=== PATIENT | female | born 1995 | race African-American/Black ===

== ENCOUNTER 2022-05-26 09:22 | Emergency (ER) | payer OTHER, SELFPAY ==
[2022-05-26 09:29] VITALS: BP 133/66; PULSE 100; RESP 15; TEMP 36.8; O2SAT 100; BMI 32.0
--- NOTE | 2022-05-26 09:31 | DI.US.S_ITS ---
PROCEDURE: US OB LIMITED INDICATIONS: 14 weeks ,bleeding OUTSIDE/PRIOR DATING DATA: Last menstrual period (LMP): Not available. LMP-based estimated date of delivery (NAYLA): Not available. First dating scan (date and location): 05/26/2022 at . Estimated date of delivery (NAYLA) from first dating scan: 13 weeks 0 day. The calculations are made using the ultrasound NAYLA of 11/29/2022. TECHNIQUE: Real-time scanning was performed of the fetus, with image documentation and biometric measurements. Biophysical profile was also obtained. Endovaginal scanning: Not performed. COMPARISON: None. FINDINGS: General: A single living intrauterine gestation is present. The estimated gestational age is 13 weeks 2 day. heart tone is present with heart rate 163 beats per minute. Placenta is posterior. Maternal cervical canal measures 4.7 cm long. biometrics: Biparietal diameter: 13 weeks 0 day Head circumference: 13 weeks 2 days Abdominal circumference: 13 weeks 4 days Femur length: 13 weeks 2 days Clinically estimated gestational age: Not available Composite gestational age from present scan: 30 weeks 2 days Other: There are multiple uterine fibroids. The largest fibroid measures 6.7 x 6.3 x 5.1 cm in the posterior uterine wall near the fundus. IMPRESSION: 1. A single living intrauterine gestation with an estimated gestational age of 13 weeks 2 days corresponding to ultrasound NAYLA 11/29/2022. 2. Cervix is normal in length and is closed. 3. Multiple uterine fibroids. The largest fibroid measures 6.7 x 6.3 x 5.1 cm We strive to produce accurate, complete, and clear reports of imaging services. To assist us in improving patient care, this report was composed using standard report templates and voice recognition software. Therefore, it may contain abnormal punctuation, insertions and/or omissions. Occasional wrong-word or sound-alike substitutions may occur. Though we review the report and make efforts to correct it, we do recommend that the report be read carefully in proper context to recognize any text inaccuracies. Dictated by: Mati Jansen M.D. on 05/26/2022 at 10:15 Approved by: Mati Jansen M.D. on 05/26/2022 at 10:24
--- NOTE | 2022-05-26 09:47 | ED_ITS ---
HPI - General Chief complaint: Vaginal Bleeding Stated complaint: 14wks , vaginal bleeding Time Seen by Provider: 05/26/22 09:39 Source: patient Mode of arrival: Ambulatory Limitations: no limitations History of Present Illness HPI Narrative: Patient is a 26-year-old healthy female who presents today optimally 14 weeks . She is a presents today with vaginal bleeding. She is not yet had any care. She is trying but everyone is backed up. She did have a confirmation ultrasound somewhere. This morning she woke up and had a small blood clot. She has no abdominal cramping no dizziness no nausea or vomiting. Unplanned but welcomed . She has not had previous blood work does not know her blood type. She thinks she is approximately 14 weeks . Related Data Previous Rx's Medication Instructions Recorded cephalexin 500 mg capsule 500 mg PO BID 5 days #10 caps 05/26/22 Allergies Allergy/AdvReac Type Severity Reaction Status Date / Time No Known Drug Allergies Allergy Verified 05/26/22 09:29 Review of Systems Review of Systems ROS Unobtainable: All systems reviewed & are unremarkable except as noted in HPI and below Exam Initial Vital Signs Initial Vital Signs: Vital Signs Temperature 98.3 F 05/26/22 09:29 Pulse Rate 100 H 05/26/22 09:29 Respiratory Rate 15 05/26/22 09:29 Blood Pressure 133/66 05/26/22 09:29 Pulse Oximetry 100 05/26/22 09:29 Oxygen Delivery Method 05/26/22 09:29 GENERAL: Alert pleasant 6-year-old female HEENT: Head atraumatic,EOMI, pupils reactive, face symmetric, moist mucous membranes CARDIOVASCULAR: Regular rate and rhythm without murmurs, rubs or gallops. RESPIRATORY: Breath sounds equal bilaterally, no wheezes rales or rhonchi. ABDOMEN: Soft, nontender. Normoactive bowel sounds all 4 quadrants. No guarding or rebound. : No CVA tenderness EXTREMITIES: Normal range of motion, no clubbing or edema. Neurovascularly intact NEUROLOGICAL: Alert and oriented x4. SKIN: Warm, dry, no laceration, no petechiae, no rashes or lesions. Course Orders Ordered: ED Orders 05/26/22 09:31 US OB limited Stat 05/26/22 09:35 Urine Culture Stat Urine Microscopic Stat 05/26/22 09:51 Complete Blood Count AUTO DIFF Stat Comprehensive Metabolic Panel Stat HCG Quantitative /Beta subunit Stat 05/26/22 10:16 ABO RH Type Stat Vital Signs Vital signs: Vital Signs - 8 hr 05/26/22 09:29 05/26/22 11:52 Temperature 98.3 F Pulse Rate 100 H 74 Respiratory Rate 15 16 Blood Pressure 133/66 122/79 Pulse Oximetry 100 98 Oxygen Delivery Method Room Air Room Air MDM - OB/Uterine Contractions Lab Data Result diagrams: 05/26/22 09:51 05/26/22 09:51 Labs: Lab Results 05/26/22 05/26/22 05/26/22 Range/Units 09:35 09:51 09:51 WBC 5.6 (4.5-11.0) X10^3/uL RBC 4.25 (4.0-5.2) X10^6/uL Hgb 12.0 (12.0-16.0) g/dL Hct 36.6 (36-46) % MCV 86.2 (80-100) fL MCH 28.3 (26-34) PG MCHC 32.9 (30-36) % RDW 14.6 (11.6-14.8) % Plt Count 252 (150-400) X10^3/uL Neut % (Auto) 55.0 (50-75) % Lymph % (Auto) 35.0 (25-40) % [place] % (Auto) 8.5 (3-14) % Eos % (Auto) 1.0 L (2-4) % Baso % (Auto) 0.5 (0-2) % Neut # (Auto) 3100 (3698-0666) /uL Lymph # (Auto) 2000 (6882-8389) /uL [place]illespie # (Auto) 500 (0-900) /uL Eos # (Auto) 100 (0-450) /uL Baso # (Auto) 0 (0-100) /uL Sodium 134 L (137-145) mmol/L Potassium 3.6 (3.4-5.1) mmol/L Chloride 103 (98-107) mmol/L Carbon Dioxide 20 L (22-32) mmol/L BUN 5 L (7-17) mg/dL Creatinine 0.66 (0.52-1.04) mg/dL Estimated GFR > 60 (>60) mL/min BUN/Creatinine Ratio 7.6 (6-22) Glucose 92 (70-100) mg/dL Calcium 9.3 (8.4-10.2) mg/dL Total Bilirubin 0.3 (0.2-1.3) mg/dL AST 24 (14-36) IU/L ALT 21 (<35) IU/L Alkaline Phosphatase 59 (38-126) U/L Total Protein 7.8 (6.3-8.2) g/dL HCG, Quant 477169 mIU/mL Urine RBC 10-30/hpf H (0-5/HPF) Urine WBC 1-5/hpf (0-5/HPF) Ur Squamous Epith Cells 1-5 /hpf (0-5/HPF) Urine Bacteria Few (2-10) H (None) Urine Mucus 3+ H (Negative) Ur Culture Indicated? Specimen cultured Blood Type Rho(D) Type Antibody Screen 05/26/22 05/26/22 Range/Units 09:51 10:16 WBC (4.5-11.0) X10^3/uL RBC (4.0-5.2) X10^6/uL Hgb (12.0-16.0) g/dL Hct (36-46) % MCV (80-100) fL MCH (26-34) PG MCHC (30-36) % RDW (11.6-14.8) % Plt Count (150-400) X10^3/uL Neut % (Auto) (50-75) % Lymph % (Auto) (25-40) % Gillespie % (Auto) (3-14) % Eos % (Auto) (2-4) % Baso % (Auto) (0-2) % Neut # (Auto) (4862-2679) /uL Lymph # (Auto) (6411-9253) /uL Gillespie # (Auto) (0-900) /uL Eos # (Auto) (0-450) /uL Baso # (Auto) (0-100) /uL Sodium (137-145) mmol/L Potassium (3.4-5.1) mmol/L Chloride (98-107) mmol/L Carbon Dioxide (22-32) mmol/L BUN (7-17) mg/dL Creatinine (0.52-1.04) mg/dL Estimated GFR (>60) mL/min BUN/Creatinine Ratio (6-22) Glucose (70-100) mg/dL Calcium (8.4-10.2) mg/dL Total Bilirubin (0.2-1.3) mg/dL AST (14-36) IU/L ALT (<35) IU/L Alkaline Phosphatase (38-126) U/L Total Protein (6.3-8.2) g/dL HCG, Quant mIU/mL Urine RBC (0-5/HPF) Urine WBC (0-5/HPF) Ur Squamous Epith Cells (0-5/HPF) Urine Bacteria (None) Urine Mucus (Negative) Ur Culture Indicated? Blood Type Cancelled O Positive Rho(D) Type Cancelled Antibody Screen Cancelled Point of Care Testing Test Results Positive Urine Dip Bedside Urine Glucose Negative Bedside Urine Bilirubin - Negative Bedside Urine Ketone - Negative Urine Specific [place] 1.030 Bedside Urine Occult Blood +++ Bedside Urine pH 6.0 Bedside Urine Protein + 30 Bedside Urine Urobilinogen - Negative Bedside Urine Nitrite - Negative Bedside Urine Leukocytes - Negative Esterase Imaging Data US - OB: Radiologist's Impression: Single living intrauterine gestation with an estimated gestational age of 13 weeks and 2 days corresponding with NAYLA 11/29/2022 Cervix is normal in length and is close Multiple uterine fibroids the largest fibroid measures 6.7 x 6.3 x 5.1 cm MDM Narrative Medical decision making narrative: Patient is a healthy 26-year-old female who presents with vaginal bleeding while . She is no abdominal cramping. Ultrasound confirms a live intrauterine without complications but does show fibroids. She only had a small amount of bleeding. She is found to have a UTI. No septic no sign of placenta previa or subchorionic hemorrhage. MDM * differential diagnosis includes but not limited to: Miscarriage, threatened miscarriage incomplete miscarriage, placenta previa subchorionic hemorrhage * Prior records reviewed: None * My lab interpretation: Within normal limits, UTI * My imaging interpretation: Ultrasound report reviewed, fibroids * Clinical Decision Rules/Scores evaluated: None * Independent discussions with: None * Social Considerations: Has not established care with Ob * Shared Decision Making: and patient *Disposition: see below, along with detailed discharge instructions that have been reviewed with patient as well as indications for ED re-evaluation and additional outpatient follow up Discharge Plan Departure Patient Disposition: Home Clinical Impression: UTI (urinary tract infection), Vaginal bleeding during Instructions: DI for Urinary Tract Infection (UTI), DI for Vaginal Bleeding During Activity Restrictions/Additional Instructions: You are blood type O+ *You have been diagnosed with vaginal bleeding, UTI *What to do: Vaginal bleeding. At this time you do have uterine fibroids. Recommend pelvic and vaginal rest no intercourse or tampons. Monitor bleeding. You do have a bladder infection and antibiotics will be started *Continue to take medications as directed Keflex 500 mg twice a day for 5 days --> [facility] *Follow up with your primary care provider in 2-3 days or call [phone] *Return to ER if you should have increased vaginal bleeding abdominal cramping dizziness lightheadedness or any new, worsening or concerning symptoms Prescriptions: New cephalexin 500 mg capsule 500 mg PO BID 5 Days Qty: 10 0RF Referrals: Tere Poe MD [Physician] - Kylie Lopez MD [Physician] - Zayra Carmichael MD [Physician] - Ramón Ji MD [Physician] - Stand Alone Forms: Patient Portal/API
[2022-05-26 10:02] LABS: Add Manual Diff / Slide Review NO; Basophils Absolute Auto 0 /uL (0-100); Basophils Percent Auto 0.5 % (0-2); Eosinophils Absolute Auto 100 /uL (0-450); Hematocrit 36.6 % (36-46); Lymphocytes Absolute Auto 2000 /uL (1100-4500); Mean Corpuscular HGB Conc 32.9 % (30-36); Mean Corpuscular Hemoglobin 28.3 PG (26-34); Mean Corpuscular Volume 86.2 fL (80-100); Monocytes Absolute Auto 500 /uL (0-900); Monocytes Percent Auto 8.5 % (3-14); Neutrophils Absolute Auto 3100 /uL (1500-7000); Platelet Count 252 X10^3/uL (150-400); Red Blood Cell Count 4.25 X10^6/uL (4.0-5.2); Red Cell Distribution Width 14.6 % (11.6-14.8); White Blood Cell Count 5.6 X10^3/uL (4.5-11.0)
[2022-05-26 10:10] LABS: Bacteria Urine Few (2-10); Culture Indicated Urine Specimen Cultured; Mucus Urine 3+ (Negative); RBC Urine 10-30/HPF (0-5/HPF); Squamous Epithelial Cell Urine 1-5 /HPF (0-5/HPF); WBC Urine 1-5/HPF (0-5/HPF)
[2022-05-26 10:13] LABS: Alanine Aminotransferase 21 IU/L (<35); Alkaline Phosphatase 59 U/L (38-126); Aspartate Aminotransferase 24 IU/L (14-36); BUN Creatinine Ratio 7.6 (6-22); Bilirubin Total 0.3 mg/dL (0.2-1.3); Blood Urea Nitrogen 5 mg/dL (7-17); Calcium 9.3 mg/dL (8.4-10.2); Carbon Dioxide 20 mmol/L (22-32); Chloride 103 mmol/L (98-107); Estimated Glomerular Filt Rate > 60 mL/min (>60); Glucose 92 mg/dL (70-100); HEMOLYSIS < 15 (0-50); Potassium 3.6 mmol/L (3.4-5.1); Sodium 134 mmol/L (137-145); Total Protein 7.8 g/dL (6.3-8.2)
[2022-05-26 11:00] LABS: HCG Quantitative /Beta subunit 103300 mIU/mL
[2022-05-26 11:52] VITALS: BP 122/79; PULSE 74; RESP 16; O2SAT 98
[2022-05-28 16:28] LABS: Albumin 4.1 g/dL (3.5-5.0); Albumin Globulin Ratio 1.1 (1.0-2.8); Globulin 3.7 g/dL (1.7-4.1)
== END 2022-05-26 11:54 | disposition home or self-care (01) ==
PROVIDERS: Emergency Provider Emergency Medicine
DX: O46.91 Antepartum hemorrhage, unspecified, first trimester (principal); O23.41 Unspecified infection of urinary tract in pregnancy, first trimester; N39.0 Urinary tract infection, site not specified; Z3A.14 14 weeks gestation of pregnancy
CPT/HCPCS: 36415; 76815; 80053; 81003; 81015; 81025; 84702; 85025; 86900; 86901; 87086; 99284

== ENCOUNTER 2022-06-03 23:28 | Emergency (ER) | payer OTHER, SELFPAY ==
[2022-06-03 23:32] VITALS: BP 128/70; PULSE 89; RESP 16; TEMP 36.6; O2SAT 100; BMI 30.1
--- NOTE | 2022-06-03 23:46 | ED.GENADULT ---
HPI - General Adult General Chief complaint: Vaginal Bleeding Stated complaint: vaginal bleeding 14weeks preganant Time Seen by Provider: 06/03/22 23:30 Source: patient and family () Mode of arrival: Ambulatory Limitations: no limitations History of Present Illness HPI narrative: Patient is a 26-year-old at approximately 14 weeks EGA who is here for evaluation of vaginal bleeding. She was seen here in the emergency department approximately 1 week ago for vaginal bleeding. She had an ultrasound which showed a single intrauterine gestation. Discharged home. She is Rh positive. States that episode of bleeding has stopped and this bleeding started over the past couple days. She states that it is as much as a menstrual cycle. No urinary symptoms. No fevers. No recent sexual intercourse. Related Data Allergies Allergy/AdvReac Type Severity Reaction Status Date / Time No Known Drug Allergies Allergy Verified 06/03/22 23:40 Review of Systems Constitutional Constitutional: Reports system reviewed and no additional complaints, except as documented Gastrointestinal Gastrointestinal: Reports system reviewed and no additional complaints, except as documented Genitourinary Genitourinary: Reports system reviewed and no additional complaints, except as documented Integumentary/Breasts Skin/Breast: Reports system reviewed and no additional complaints, except as documented Hematologic/Lymphatic On Anticoagulants: No Patient History Social History Smoking Status: Unknown if ever smoked Smoking Status: Unknown if ever smoked alcohol intake frequency: holidays/special occasions only Substance Use Type: does not use Exam Initial Vital Signs Initial Vital Signs: Vital Signs Temperature 97.8 F 06/03/22 23:32 Pulse Rate 89 06/03/22 23:32 Respiratory Rate 16 06/03/22 23:32 Blood Pressure 128/70 06/03/22 23:32 Pulse Oximetry 100 06/03/22 23:32 Oxygen Delivery Method 06/03/22 23:32 HENMT Head: normal to inspection and normocephalic Resp Effort & Inspection: normal respiratory effort Cardio Rate: regular rate GI Inspection: non-distended Course Orders Ordered: ED Orders 06/03/22 23:47 US OB limited Stat Vital Signs Vital signs: Vital Signs - 8 hr 06/03/22 23:32 Temperature 97.8 F Pulse Rate 89 Respiratory Rate 16 Blood Pressure 128/70 Pulse Oximetry 100 Oxygen Delivery Method Room Air Medical Decision Making Differential Diagnosis Differential Diagnosis: Miscarriage, ectopic, abnormal vaginal bleeding, and others Condition is:: Well Controlled Medical Records Medical records reviewed: Yes I reviewed the patient's medical records. Lab Data Lab results reviewed: Yes I reviewed the patient's lab results. Imaging Data US - OB: Radiologist's Impression: [address] [address] Ultrasound Report Signed Patient: Mayelin Dillon MR#: [id number] : 1995 Acct:[id number] Age/Sex: 26 / F Date of Service: 06/03/22 Loc: ED Accession Number: [id number] ?? Procedure: US OB limited Ordering Provider: Harpreet Sloan D.O. PROCEDURE:? US OB LIMITED ? INDICATIONS:? BLEEDING ? OUTSIDE/PRIOR DATING DATA:? Last menstrual period (LMP):? Unsure.? First dating scan (date and location):? 05/26/2022.? Estimated date of delivery (NAYLA) from first dating scan:? 11/29/2022. The calculations are made using the ultrasound NAYLA of 11/29/2022.? ? TECHNIQUE:? Real-time scanning was performed of the fetus, with image documentation and biometric measurements.? Biophysical profile was also obtained.? ? COMPARISON:? [facility], , US OB LIMITED, 05/26/2022, 9:52. ? FINDINGS:? ? General:? A single living intrauterine gestation is present.? Placenta:? Placental position appears located in the posterior fundal region.? No definite periplacental fluid collections. Amniotic fluid:? Appears visually within normal limits. heart rate:? 147 beats per minute.? Maternal cervical canal:? Not measured. Clinically estimated gestational age:? 14 weeks 4 days Multiple uterine fibroids redemonstrated including a left fibroid measuring approximately 7.6 x 5.1 x 6.1 cm and a right fibroid measuring 4.6 x 4.1 x 4 9 cm. ? ? IMPRESSION:? ? 1. Single living intrauterine redemonstrated.? ? 2. No periplacental fluid collections to suggest placental abruption. ? 3. Multiple prominent uterine fibroids redemonstrated.? ? We strive to produce accurate, complete, and clear reports of imaging services. To assist us in improving patient care, this report was composed using standard report templates and voice recognition software. Therefore, it may contain abnormal punctuation, insertions and/or omissions. Occasional wrong-word or sound-alike substitutions may occur. Though we review the report and make efforts to correct it, we do recommend that the report be read carefully in proper context to recognize any text inaccuracies. ? Dictated by: Colton Gaxiola M.D. on 06/04/2022 at 1:44 ? ? Approved by: Colton Gaxiola M.D. on 06/04/2022 at 1:49 MDM Narrative Medical decision making narrative: Patient is Rh positive. Ultrasound today shows single live intrauterine . She is a follow-up appointment on Tuesday with OB. No further workup required in the emergency department. Discharge patient home with return precautions. She expressed understanding and agreement. Discharge Plan Departure Patient Disposition: Home Clinical Impression: Vaginal bleeding during Instructions: DI for Vaginal Bleeding During Activity Restrictions/Additional Instructions: The ultrasound today is very reassuring. I recommend that you keep your appointment that you have scheduled on Tuesday with the OB provider. Return to the emergency department for worsening symptoms. Referrals: ProviderHeather [Primary Care Provider] - Stand Alone Forms: Patient Portal/API
--- NOTE | 2022-06-03 23:47 | DI.US.S_ITS ---
PROCEDURE: US OB LIMITED INDICATIONS: BLEEDING OUTSIDE/PRIOR DATING DATA: Last menstrual period (LMP): Unsure. First dating scan (date and location): 05/26/2022. Estimated date of delivery (NAYLA) from first dating scan: 11/29/2022. The calculations are made using the ultrasound NAYLA of 11/29/2022. TECHNIQUE: Real-time scanning was performed of the fetus, with image documentation and biometric measurements. Biophysical profile was also obtained. COMPARISON: [facility], , OB LIMITED, 05/26/2022, 9:52. FINDINGS: General: A single living intrauterine gestation is present. Placenta: Placental position appears located in the posterior fundal region. No definite periplacental fluid collections. Amniotic fluid: Appears visually within normal limits. heart rate: 147 beats per minute. Maternal cervical canal: Not measured. Clinically estimated gestational age: 14 weeks 4 days Multiple uterine fibroids redemonstrated including a left fibroid measuring approximately 7.6 x 5.1 x 6.1 cm and a right fibroid measuring 4.6 x 4.1 x 4 9 cm. IMPRESSION: 1. Single living intrauterine redemonstrated. 2. No periplacental fluid collections to suggest placental abruption. 3. Multiple prominent uterine fibroids redemonstrated. We strive to produce accurate, complete, and clear reports of imaging services. To assist us in improving patient care, this report was composed using standard report templates and voice recognition software. Therefore, it may contain abnormal punctuation, insertions and/or omissions. Occasional wrong-word or sound-alike substitutions may occur. Though we review the report and make efforts to correct it, we do recommend that the report be read carefully in proper context to recognize any text inaccuracies. Dictated by: Colton Gaxiola M.D. on 06/04/2022 at 1:44 Approved by: Colton Gaxiola M.D. on 06/04/2022 at 1:49
[2022-06-04 02:03] VITALS: BP 120/77; PULSE 74
[2022-06-04 02:05] VITALS: BP 120/77; PULSE 75; RESP 18; O2SAT 100
== END 2022-06-04 02:06 | disposition home or self-care (01) ==
PROVIDERS: Emergency Provider Emergency Medicine
DX: O46.91 Antepartum hemorrhage, unspecified, first trimester (principal); Z3A.14 14 weeks gestation of pregnancy
CPT/HCPCS: 76815; 99281; 99283

== ENCOUNTER 2022-06-23 01:56 | Emergency (ER) | payer OTHER, SELFPAY ==
[2022-06-23 02:06] VITALS: BP 136/83; PULSE 88; RESP 20; TEMP 36.1; O2SAT 97; BMI 32.0
[2022-06-23 02:08] VITALS: PULSE 90; O2SAT 98
--- NOTE | 2022-06-23 02:19 | DI.US.S_ITS ---
PROCEDURE: US OB LIMITED INDICATIONS: SPOTTING OUTSIDE/PRIOR DATING DATA: Last menstrual period (LMP): Unsure LMP-based estimated date of delivery (NAYLA): Unknown First dating scan (date and location): 05/26/2022 Estimated date of delivery (NAYLA) from first dating scan: 11/29/2022 The calculations are made using the working NAYLA of 11/29/2022. TECHNIQUE: Real-time scanning was performed of the fetus, with image documentation . Endovaginal scanning: Not indicated COMPARISON: [facility], US OB LIMITED, 06/04/2022, 0:39. FINDINGS: General: A single living intrauterine gestation is present. Presentation: Breech Placenta: Placental position is posterior, without previa. Amniotic fluid index: 14.7 cm, normal range is 5-24 cm. Single deepest vertical pocket is 5.2 cm. heart rate: 157 beats per minute. Maternal cervical canal: 4.3 cm long. Normal lower limit is 2.5 cm. IMPRESSION: 1. Single live intrauterine gestation with fetus in breech presentation. heart rate is 157 beats per minute. Normal amount of amniotic fluid. 2. Placenta position is posterior, no placenta previa. No signs of abruption. No discrepancies from preliminary reading. We strive to produce accurate, complete, and clear reports of imaging services. To assist us in improving patient care, this report was composed using standard report templates and voice recognition software. Therefore, it may contain abnormal punctuation, insertions and/or omissions. Occasional wrong-word or sound-alike substitutions may occur. Though we review the report and make efforts to correct it, we do recommend that the report be read carefully in proper context to recognize any text inaccuracies. Dictated by: Eliecer Hampton M.D. on 06/23/2022 at 8:14 Approved by: Eliecer Hampton M.D. on 06/23/2022 at 8:16
[2022-06-23 02:30] VITALS: BP 124/82; PULSE 97; O2SAT 98
[2022-06-23 03:00] VITALS: BP 100/60; PULSE 76; O2SAT 97
--- NOTE | 2022-06-23 03:12 | ED_ITS ---
HPI - General Adult General Chief complaint: Abdominal Pain Stated complaint: 16 WEEKS PAIN Time Seen by Provider: 06/23/22 02:18 Source: patient Mode of arrival: Ambulatory Limitations: no limitations History of Present Illness HPI narrative: Patient is a 26-year-old female. She is a G2 P 0 at approximately 16 weeks EGA. She has been followed by Ob thus far in this . She is Rh positive. For the past couple days she has had lower abdominal pain and vaginal bleeding. She states it is bleeding his much as we would be like during her 1st couple days of a menstrual cycle. No fevers. No urinary symptoms. States she is constipated and is taking medications for this. She is also having nausea. She talked with her OB doctor earlier this week who advised that she ?seek help? if her symptoms worsened. Related Data Allergies Allergy/AdvReac Type Severity Reaction Status Date / Time No Known Drug Allergies Allergy Verified 06/03/22 23:40 Review of Systems Constitutional Constitutional: Reports system reviewed and no additional complaints, except as documented Gastrointestinal Gastrointestinal: Reports system reviewed and no additional complaints, except as documented Genitourinary Genitourinary: Reports system reviewed and no additional complaints, except as documented Neurologic Neurologic: Reports system reviewed and no additional complaints, except as documented Patient History Social History Smoking Status: Unknown if ever smoked Smoking Status: Unknown if ever smoked alcohol intake frequency: holidays/special occasions only Substance Use Type: does not use Exam Initial Vital Signs Initial Vital Signs: Vital Signs Temperature 96.9 F L 06/23/22 02:06 Pulse Rate 88 06/23/22 02:06 Respiratory Rate 20 06/23/22 02:06 Blood Pressure 136/83 06/23/22 02:06 Pulse Oximetry 97 06/23/22 02:06 Oxygen Delivery Method 06/23/22 02:06 HENMT Head: normal to inspection and normocephalic Resp Effort & Inspection: normal respiratory effort Cardio Rate: regular rate GI Other: Gravid abdomen Skin General: no rashes or lesions noted Neuro General: patient alert, patient awake and moves all extremities Extrem General: normal to inspection and capillary refill normal Course Orders Ordered: ED Orders 06/23/22 02:19 US OB limited Stat Vital Signs Vital signs: Vital Signs - 8 hr 06/23/22 02:06 06/23/22 02:08 06/23/22 02:30 Temperature 96.9 F L Pulse Rate 88 90 Respiratory Rate 20 Blood Pressure 136/83 124/82 Pulse Oximetry 97 98 Oxygen Delivery Method Room Air 06/23/22 02:30 06/23/22 03:00 06/23/22 03:00 Temperature Pulse Rate 97 H 76 Respiratory Rate Blood Pressure 100/60 Pulse Oximetry 98 97 Oxygen Delivery Method 06/23/22 03:30 06/23/22 03:30 Temperature Pulse Rate 77 Respiratory Rate Blood Pressure 95/61 Pulse Oximetry 98 Oxygen Delivery Method Medical Decision Making Imaging Data US - OB: Radiologist's Impression: Single live intrauterine gestation with a heart rate of 157 beats per minute MDM Narrative Medical decision making narrative: Patient does have a benign exam. She is Rh positive. She is a single live intrauterine gestation on ultrasound. I have low suspicion for urinary tract infection. Feel we can hold on further radiologic studies for now based on her physical exam. She was advised she needs to contact her who be/frame stripper and crusher doctor tomorrow to see if they would like to see her sooner in the office than 2 weeks from now. She was given return precautions. She expressed understanding and agreement. Discharge Plan Departure Patient Disposition: Home Clinical Impression: Vaginal bleeding in Instructions: DI for Vaginal Bleeding During Activity Restrictions/Additional Instructions: I recommend that you contact your primary senior grant writer to see if they want to see you sooner than 2 weeks from now. Everything looked well today on the ultrasound. Return to the emergency department for worsening symptoms. Stand Alone Forms: Patient Portal/API
[2022-06-23 03:30] VITALS: BP 95/61; PULSE 77; O2SAT 98
== END 2022-06-23 03:43 | disposition home or self-care (01) ==
PROVIDERS: Emergency Provider Emergency Medicine
DX: O46.92 Antepartum hemorrhage, unspecified, second trimester (principal); Z3A.16 16 weeks gestation of pregnancy
CPT/HCPCS: 76815; 99281; 99283

== ENCOUNTER 2022-07-19 17:37 | Inpatient (IN) | payer OTHER, SELFPAY ==
--- NOTE | 2022-07-19 18:12 | PM.OBTRLD ---
Visit Information Visit Information Date of evaluation: 07/19/22 On-call OB Provider: Kylie Lopez Reason for Evaluation: Yes pre-term labor Vital Signs Vital Signs: BP 124/72, P 77, T 98.9 PFSH Social History Smoking Status: Unknown if ever smoked Comment: Patient with known uterine fibroids Review of Systems Review of Systems Narrative: Patient has been having cramping since last evening. It has gotten worse today. She did have some bright red bleeding that filled a pad last night but no bleeding today. No fevers. Patient does complain of a headache. She did start having some diarrhea today. Patient denies any pain or burning with urination. Exam Narrative Exam Narrative: Patient's HEENT is within normal limits. Lungs are clear to auscultation and percussion. Heart is regular rate and rhythm no S3-S4 murmurs. No thyromegaly. Abdomen is soft with diffuse tenderness. Uterus is firm and with tenderness similar to her abdomen. Normal external genitalia, vagina, cervix. Speculum exam does not reveal any abnormalities of the cervix or any bleeding. Cervix appears normal. On digital exam the cervix is closed and long, however does feel there is some thinning of the lower uterine segment. Ultrasound was performed. Normal fluid. Baby is active. Transverse lie. Fibroids are seen in the uterine wall. No obvious retroplacental fluid collection for bleeding. Evaluation Evaluation Baseline heart rate: 150 Cervical dilation (cm): 0 Cervical effacement (%): 0 station: -4 Diagnosis, Plan/Disposition Plan/Disposition Plan: No evidence of imminent delivery. Will IV hydrate the patient. Due to the fact the patient has known fibroids it is possible she has pain in irritation from a degenerating fibroid. Will try 1 dose indomethacin. OB Disposition: other (Monitor for improvement of symptoms prior to decision for discharge)
[2022-07-19] MEDS: LACTATED RINGERS 1,000 ML 1000 ML IV ×2 (18:42→20:00)
[2022-07-19] MEDS: INDOMETHACIN 25 MG CAPSULE 50 MG PO (18:43)
[2022-07-19 19:04] LABS: Add Manual Diff / Slide Review NO; Basophils Absolute Auto 0 /uL (0-100); Basophils Percent Auto 0.3 % (0-2); Eosinophils Absolute Auto 0 /uL (0-450); Eosinophils Percent Auto 0.2 % (2-4); Hematocrit 33.3 % (36-46); Hemoglobin 11.1 g/dL (12.0-16.0); Lymphocytes Absolute Auto 1000 /uL (1100-4500); Lymphocytes Percent Auto 11.6 % (25-40); Mean Corpuscular HGB Conc 33.5 % (30-36); Mean Corpuscular Volume 86.7 fL (80-100); Monocytes Absolute Auto 400 /uL (0-900); Monocytes Percent Auto 4.5 % (3-14); Neutrophils Absolute Auto 7400 /uL (1500-7000); Neutrophils Percent Auto 83.4 % (50-75); Platelet Count 264 X10^3/uL (150-400); Red Blood Cell Count 3.84 X10^6/uL (4.0-5.2); White Blood Cell Count 8.8 X10^3/uL (4.5-11.0)
[2022-07-19] MEDS: OXYCODONE IR 5 MG TABLET 10 MG PO (19:52)
[2022-07-19 20:14] LABS: Appearance Urine UA CLEAR; Bilirubin Urine UA NEGATIVE (NEGATIVE); Color Urine UA YELLOW; Glucose Urine UA NEGATIVE (Negative); Ketones Urine UA 3+ (NEGATIVE); Leukocyte Esterase Urine UA NEGATIVE (NEGATIVE); Nitrite Urine UA NEGATIVE (Negative); Occult Blood Urine UA NEGATIVE (Negative); Protein Urine UA NEGATIVE (Negative); Specific Gravity Urine UA 1.015 (1.000-1.035); Urobilinogen Urine UA 0.2 E.U./dL (0.2)
[2022-07-19 20:52] LABS: UR Morphine/Opiate cutoff 300 Negative (Negative); Ur Creatinine Normal (Normal); Ur Specific Gravity Normal (Normal); Urine Amphetamines Negative (Negative); Urine Barbiturates Negative (Negative); Urine Benzodiazepines Negative (Negative); Urine Cocaine Negative (Negative); Urine MDMA Negative (Negative); Urine Methadone Negative (Negative); Urine Methamphetamines Negative (Negative); Urine Oxycodone Negative (Negative); Urine Phencyclidine Negative (Negative); Urine Tetrahydrocannabinol Negative (Negative); Urine Tricyclic Antidepressant Negative (Negative); Urine pH Normal (Normal)
[2022-07-19] MEDS: MORPHINE 2 MG/ML INJ IV (21:23)
[2022-07-19] MEDS: MORPHINE 2 MG/ML INJ 4 MG IV (22:32)
--- NOTE | 2022-07-19 23:16 | PM.PROC.1 ---
Procedures Date/Time Date of procedure: 07/19/22 Time of procedure: 23:16 General Procedure description: Delivery vaginally of non viable fetus. The patient arrived on Labor and delivery at 20 week gestation with abdominal pain. Initial evaluation patient had a closed long cervix. Patient was treated pain medicine and indomethacin in case we could stop labor or she was having pain from a degenerating uterine fibroid. Her pain increased in intensity and she had a bulging bag of water that presented and ruptured. The fetus was in the vaginal canal in the vertex position. The patient was able to push to deliver the fetus. Delivery time 11:00 p.m. The nonviable female fetus had normal external appearance. The cord was clamped. There was no smell to the baby or fluid. Expectant management for the placenta was undertaken. Patient had some increased bleeding with a total estimated blood loss at the point of 4-500 cc. Exam and then speculum placed in the vagina showed a significant amount of the placenta in the vagina. This was removed with ring forceps. Large amount of placenta was removed. Although somewhat difficult to tell for sure it appeared to be removed totally. Patient was given 800 mcg of Cytotec rectally. She will be monitored for bleeding for possible retained placenta.
[2022-07-20] MEDS: miSOPROStoL 200 MCG TABLET 800 MCG PR (01:10)
[2022-07-20] MEDS: ACETAMINOPHEN 325 MG TABLET 650 MG PO (02:32)
[2022-07-20] MEDS: IBUPROFEN 600 MG TABLET PO (02:33)
--- NOTE | 2022-07-20 08:37 | P.DS_ITS ---
History of Present Illness History of Present Illness Date Patient Seen: 07/20/22 Time Patient Seen: 08:37 Chief complaint: 20 week miscarriage Discharge Providers Provider Date of admission: 07/19/22 17:37 Discharge Date: 07/20/22 Consults: 07/20/22 07:50 Consult to [facility] - [employer] Software Engineer Stat Comment: Discharge provider: Kylie Lopez MD Summary Hospital Course Discharge Diagnosis: 20 week miscarriage Hospital Course: Patient arrived on Labor and delivery with increasing abdominal pain. Despite IV fluids and indomethacin the patient had spontaneous delivery of a nonviable female fetus. Unclear etiology of cause of early delivery. Patient is stable medically. Status at Discharge Cognitive/behavioral status at discharge: oriented Functional status at discharge: independent ambulation Overall status at discharge: patient is progressing back to baseline Time Spent with Patient Time spent: Less than 30 minutes Exam Vital Signs (past 8 hours): Blood pressure 94/60, pulse of 71, temperature 36? Narrative Exam Narrative: Abdomen is soft, nontender. Uterus is firm, U-2, nontender. Mild lochia. Extremities without edema and nontender. Objective Labs 07/19/22 18:30 Labs: Laboratory Results - last 24 hr 07/19/22 07/19/22 07/19/22 14:35 18:30 19:35 WBC 8.8 RBC 3.84 L Hgb 11.1 L Hct 33.3 L MCV 86.7 MCH 29.0 MCHC 33.5 RDW 14.0 Plt Count 264 Neut % (Auto) 83.4 H Lymph % (Auto) 11.6 L Maverick % (Auto) 4.5 Eos % (Auto) 0.2 L Baso % (Auto) 0.3 Neut # (Auto) 7400 H Lymph # (Auto) 1000 L Maverick # (Auto) 400 Eos # (Auto) 0 Baso # (Auto) 0 Urine Color Yellow Urine Appearance Clear Urine pH 8.0 Ur Specific [place] 1.015 Urine Protein Negative Urine Glucose (UA) Negative Urine Ketones 3+ H Urine Occult Blood Negative Urine Nitrate Negative Urine Bilirubin Negative Urine Urobilinogen 0.2 Ur Leukocyte Esterase Negative U Opiates 300ng/mL cut Negative Ur Oxycodone Screen Negative Urine Methadone Screen Negative Ur Barbiturates Screen Negative U Tricyclic Antidepress Negative Ur Phencyclidine Scrn Negative Ur Amphetamines Screen Negative U Methamphetamines Scrn Negative Ur MDMA Scrn (Ecstasy) Negative U Benzodiazepines Scrn Negative Urine Cocaine Screen Negative U Marijuana (THC) Screen Negative Blood Type Antibody Screen 07/20/22 00:19 WBC RBC Hgb Hct MCV MCH MCHC RDW Plt Count Neut % (Auto) Lymph % (Auto) Maverick % (Auto) Eos % (Auto) Baso % (Auto) Neut # (Auto) Lymph # (Auto) Maverick # (Auto) Eos # (Auto) Baso # (Auto) Urine Color Urine Appearance Urine pH Ur Specific [place] Urine Protein Urine Glucose (UA) Urine Ketones Urine Occult Blood Urine Nitrate Urine Bilirubin Urine Urobilinogen Ur Leukocyte Esterase U Opiates 300ng/mL cut Ur Oxycodone Screen Urine Methadone Screen Ur Barbiturates Screen U Tricyclic Antidepress Ur Phencyclidine Scrn Ur Amphetamines Screen U Methamphetamines Scrn Ur MDMA Scrn (Ecstasy) U Benzodiazepines Scrn Urine Cocaine Screen U Marijuana (THC) Screen Blood Type O Positive Antibody Screen Negative [facility] Social History Smoking Status: Never smoker Discharge Assessment & Plan Assessment and Plan Assessment: Post spontaneous delivery of 20 week nonviable fetus. Patient is stable. Plan of Treatment: Discharged home to be followed up in 2 weeks. Precautions reviewed. Nothing in vagina for 6 weeks. Emotional support offered. Discharge Plan Discharge Plan Patient Disposition: Home Discharge orders & Medications Follow up/Referrals: Kylie Lopez MD [Physician] - 2 Weeks Diet/Activity/Treatments Diet: Regular Activity: Nothing in vagina for 6 weeks Skin/Wound/Dressing Care Report to your healthcare provider any signs of infection, such as:: chills, fever and increased pain Visit Report/Discharge Packet Stand Alone Forms: Patient Portal/API Discharge Data Attending Provider: Zayra Carmichael
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
[2022-07-20 11:34] VITALS: BP 106/73; PULSE 82; RESP 16; TEMP 37.1
--- NOTE | 2022-07-24 13:22 | PM.GYNHP.1 ---
History of Present Illness History of Present Illness Narrative: Mayelin Dillon is a 26 year old female who arrived on Labor and delivery at 20 weeks gestation with increasing abdominal pain and vaginal bleeding. [facility] Social History Smoking Status: Never smoker Meds Home Medications and Allergies Allergies Allergy/AdvReac Type Severity Reaction Status Date / Time No Known Drug Allergies Allergy Verified 06/03/22 23:40 Review of Systems Review of Systems Narrative: Patient has been having cramping since last evening.? It has gotten worse today.? She did have some bright red bleeding that filled a pad last night but no bleeding today.? No fevers.? Patient does complain of a headache.? She did start having some diarrhea today.? Patient denies any pain or burning with urination. Exam Narrative Exam Narrative: Patient's HEENT is within normal limits.? Lungs are clear to auscultation and percussion.? Heart is regular rate and rhythm no S3-S4 murmurs.? No thyromegaly.? Abdomen is soft with diffuse tenderness.? Uterus is firm and with tenderness similar to her abdomen.? Normal external genitalia, vagina, cervix.? Speculum exam does not reveal any abnormalities of the cervix or any bleeding.? Cervix appears normal.? On digital exam the cervix is closed and long, however does feel there is some thinning of the lower uterine segment. Ultrasound was performed.? Normal fluid.? Baby is active.? Transverse lie.? Fibroids are seen in the uterine wall.? No obvious retroplacental fluid collection. After several hours of monitoring and IV fluids with indomethacin the patient had continued increasing abdominal pain and was found to have progressed to complete dilation with imminent delivery of nonviable fetus. Objective Labs 07/19/22 18:30 Assessment & Plan Assessment and plan (1) Miscarriage at 8 to 28 weeks gestation: Status: Acute Assessment & Plan narrative: 20 week miscarriage. See procedure note.. Time Spent With Patient Critical Care time: I spent a total of [] minutes of critical care time on this patient's care today; this time is exclusive of procedural time.
--- NOTE | 2022-07-27 | PATH_ITS ---
[facility] Accession Number: [id number] No. of containers..01 Tissue . 01 Material submitted: . placenta - PLACENTA . 01 Clinical history: . R/O INFECTION SECOND TRIMESTER BLEEDING . 01 Diagnosis: Histologic findings suggestive of possible retroplacental hematoma; please correlate with laboratory, imaging, and clinical studies. . Placenta: Placenta parenchyma: Weight: 161 grams. Specimen is fragmented and possibly represents an incomplete placenta. Chorionic villous features are immature and consistent with second trimester gestational age. No villitis identified. Moderate inter- and intravillus fibrin is present. Patchy chronic deciduitis, non-specific. No viral cytopathic effect identified. Disrupted maternal surface is associated with adherent blood at gross examination; blood extends into intraplacental parenchyma with intravillous hemorrhage/villous stromal hemorrhage. Ancillary studies pending for CMV and HSV1/2; results will be reported as an addendum. Please see comment. . Umbilical cord: No attachment to the placenta at gross examination. Clip at one end at gross examination. Length 28.2 cm. Three vessels present. Insertion point indeterminate at gross examination. No funisitis identified. . Membranes: Insertion site indeterminate at gross examination. Completeness cannot be determined at gross examination. Focal, mild chorioamnionitis. No viral cytopathic effect identified. MRV 07/23/2022 [facility] Local . 01 Comment: These histologic findings suggest a possible retroplacental hematoma / abruption, in the appropriate clinical setting. Please correlate with clinical, imaging, and laboratory findings. . HSV1/2 and CMV stains pending; results will be reported as an addendum. . As part of routine quality inspector, this case was also reviewed by Dr. Wood, who agrees with the interpretation. . 01 Electronically signed: . Vannessa Camejo MD, Pathologist NPI- [id number] . 01 Gross description: . The specimen is received in formalin labeled with the patient's name, , and no additional designation, and consists of a fragmented placenta weighing 161 grams and aggregating to 13.5 x 10.7 x 3.5 cm. . The membranes are sin and translucent with no pale sin areas or thickening grossly identified. The insertion and point of rupture cannot be determined. . The fragment of umbilical cord has a clip at one end and is not attached to the placenta and measures 28.2 cm in length by 0.6 cm in diameter. The cord has a presumed leftward coil with an index of approximately 1.5 twists per 5 cm. Sectioning reveals unremarkable trivascular architecture. The insertion point of the cord cannot be determined. The presumed surface is blue-marques with no areas of dicoloration grossly identified. . The maternal surface completeness cannot be determined. It is brown and roughened with no discoloration grossly identified. Sectioning reveals a red to brown, spongy cut surface with small pale sin areas of discoloration occupying approximately 10% of the cut surface. Also identified is an area of adherent hemorrhage grossly distorting the cut surface occupying approximately 20% of the area. No additional lesions are identified. . Route Sales Delivery Driver sections are submitted as follows: A1: Cord. A2: Membrane roll. A3-A4: Possible full thickness sections with hemorrhage and cut surface discoloration. A5: Possible full thickness cut surface discoloration. A6-A8: Possible full thickness most normal sections. ([id number]) /JANICE 07/22/[address] [place] [address] . 01 Pathologist provided ICD-10: O43.93, O45.001 . 01 CPT . 792234 Specimen Comment: A duplicate report has been generated due to demographic updates. Performed at: 01 [facility] [address] [place] [address] [address] [facility], [place], [place] [id number] MD Colton Longoria MD Phone: [phone]
== END 2022-07-20 10:58 | disposition home or self-care (01) | DRG 807 ==
PROVIDERS: Specialist; Admitting Provider Obstetrics & Gynecology; Referring Provider Obstetrics & Gynecology; Visit Provider Obstetrics & Gynecology
DX: O03.9 Complete or unspecified spontaneous abortion without complication (principal); Z37.1 Single stillbirth; Z3A.20 20 weeks gestation of pregnancy
CPT/HCPCS: 36415; 59409; 80305; 81003; 85025; 86850; 86900; 86901; 96360; 96361; 99222; 99238; G0378; G0379; J2270; S0191

== ENCOUNTER 2022-07-29 15:56 | Inpatient (IN) | payer OTHER, SELFPAY ==
[2022-07-29] VITALS (14 sets, daily range): BP systolic 98–115; BP diastolic 66–76; PULSE 91–140; RESP 17–31; TEMP 36.3–37.2; O2SAT 96–100; BMI 31.8
--- NOTE | 2022-07-29 16:06 | DI.RAD.S_ITS ---
PROCEDURE: XR CHEST 1V INDICATIONS: suspected sepsis TECHNIQUE: One view of the chest was acquired. COMPARISON: None. FINDINGS: Surgical changes and devices: None. Lungs and pleura: Lungs are clear. No pleural effusions or pneumothorax. Mediastinum: Mediastinal contours appear normal. Heart size is normal. Bones and chest wall. No suspicious bony lesions. Impression: No acute cardiopulmonary pathology. Dictated by: Eliecer Hampton M.D. on 07/29/2022 at 15:55 Approved by: Eliecer Hampton M.D. on 07/29/2022 at 16:03
--- NOTE | 2022-07-29 16:13 | DI.US.S_ITS ---
PROCEDURE: US PELVIC COMPLETE INDICATIONS: ONE WEEK POST . CRAMPING TECHNIQUE: Real-time scanning was performed of the pelvic organs, with image documentation. Additional endovaginal scanning was necessary due to incomplete visualization of the adnexal and endometrial structures by transabdominal scanning. COMPARISON: None. FINDINGS: Uterus: Uterus is anteverted and normal in size at 15.3 x 10.1 x 7.8 cm. The myometrium is homogeneous. The endometrium measures 16 mm combined thickness. No internal vascularity. No retained products of conception seen. Right posterior intramural fibroid measuring 3.8 x 3.5 x 3.5 cm. Left mid intramural fibroid measuring 5.4 x 4.5 x 2.8 cm. Ovaries: The right ovary measures 3.2 x 3.1 x 1.5 cm, with a calculated ovarian volume of 8 cc. The left ovary measures 5.5 x 4 x 3.3 cm, with a calculated ovarian volume of 38 cc. The ovaries have a normal sonographic appearance. Less than 12 follicles can be seen in each ovary. No adnexal masses are seen. Other: No pathologic free abdominal or pelvic fluid. IMPRESSION: Endometrium measures 16 mm. No retained products of conception. Uterine fibroids. Largest measuring 5.5 cm. We strive to produce accurate, complete, and clear reports of imaging services. To assist us in improving patient care, this report was composed using standard report templates and voice recognition software. Therefore, it may contain abnormal punctuation, insertions and/or omissions. Occasional wrong-word or sound-alike substitutions may occur. Though we review the report and make efforts to correct it, we do recommend that the report be read carefully in proper context to recognize any text inaccuracies. Dictated by: Herbert Bedolla M.D. on 07/29/2022 at 17:41 Approved by: Herbert Bedolla M.D. on 07/29/2022 at 17:44
[2022-07-29 16:42] LABS: INR 1.3 (0.9-1.3); Prothrombin Time 14.6 SECONDS (10.1-12.7)
[2022-07-29 16:45] LABS: Lactate (Lactic Acid) 1.9 mmol/L (0.7-2.1); PTT Partial Thromboplastin Tim 24 SECONDS (26-36)
[2022-07-29 16:46] LABS: Alanine Aminotransferase 17 IU/L (<35); Albumin 3.2 g/dL (3.5-5.0); Albumin Globulin Ratio 0.9 (1.0-2.8); Alkaline Phosphatase 122 U/L (38-126); Aspartate Aminotransferase 21 IU/L (14-36); BUN Creatinine Ratio 6.2 (6-22); Bilirubin Total 1.1 mg/dL (0.2-1.3); Blood Urea Nitrogen 4 mg/dL (7-17); Calcium 8.3 mg/dL (8.4-10.2); Carbon Dioxide 22 mmol/L (22-32); Chloride 104 mmol/L (98-107); Estimated Glomerular Filt Rate > 60 mL/min (>60); Globulin 3.5 g/dL (1.7-4.1); Glucose 105 mg/dL (70-100); HEMOLYSIS < 15 (0-50); Lipase 69 U/L (23-300); Sodium 135 mmol/L (137-145); Total Protein 6.7 g/dL (6.3-8.2)
[2022-07-29 16:51] LABS: Potassium 2.6 mmol/L (3.4-5.1)
[2022-07-29 17:02] LABS: Procalcitonin 15.7 ng/mL (<0.5)
[2022-07-29] MEDS: SODIUM CHLORIDE 0.9% 1,000 ML 1000 ML IV (17:04)
[2022-07-29] MEDS: CEFEPIME 2 GM in SODIUM CHLORIDE 0.9% 100 ML IV (17:11)
[2022-07-29 17:27] LABS: Add Manual Diff / Slide Review NO; Basophils Absolute Auto 0 /uL (0-100); Basophils Percent Auto 0.1 % (0-2); Eosinophils Absolute Auto 0 /uL (0-450); Hematocrit 24.7 % (36-46); Hemoglobin 8.2 g/dL (12.0-16.0); Lymphocytes Absolute Auto 200 /uL (1100-4500); Lymphocytes Percent Auto 1.8 % (25-40); Mean Corpuscular HGB Conc 33.2 % (30-36); Mean Corpuscular Volume 84.4 fL (80-100); Monocytes Absolute Auto 200 /uL (0-900); Monocytes Percent Auto 1.4 % (3-14); Neutrophils Absolute Auto 13500 /uL (1500-7000); Neutrophils Percent Auto 96.7 % (50-75); Platelet Count 273 X10^3/uL (150-400); Red Blood Cell Count 2.93 X10^6/uL (4.0-5.2); White Blood Cell Count 13.9 X10^3/uL (4.5-11.0)
[2022-07-29] MEDS: POTASSIUM PHOSPHATE 15 MMOL in SODIUM CHLORIDE 0.9% 250 ML 63.75 MMOL IV (17:44)
--- NOTE | 2022-07-29 18:00 | DI.CT.S_ITS ---
PROCEDURE: CT CHEST ABD PEL W CON INDICATIONS: eval source infection, septic TECHNIQUE: After the administration of intravenous contrast, 5 mm thick sections acquired from the lung apices to the symphysis. 5 mm coronal and sagittal reformats were performed, with additional 7 mm MIP reformats through the lungs. For radiation dose reduction, the following was used: automated exposure control, adjustment of mA and/or kV according to patient size. COMPARISON: None. FINDINGS: Image quality: Excellent. CHEST: Lungs and pleura: Linear scarring/atelectasis in anterolateral aspect of left upper lobe is seen. No acute airspace opacities. No pleural effusions or pneumothorax. Central and peripheral airways appear patent and normal in caliber. Mediastinum: Heart size is normal. No pericardial effusion. No mediastinal or hilar adenopathy by size criteria. Thoracic aorta and central pulmonary arteries are normal in size. Esophagus is normal in caliber. No hiatal hernia. Chest wall: Mildly prominent bilateral axillary lymph nodes are seen measures up to 1.1 cm in short axis diameter in left axilla series 2, image 13. No supraclavicular adenopathy by size criteria. Thyroid gland is within normal limits.. ABDOMEN: Solid organs: Liver is normal in size and enhancement. Gallbladder is within normal limits. Biliary system is non dilated. Pancreas enhances normally. Spleen is normal in size and enhancement. No adrenal nodules. Kidneys demonstrate normal size and enhancement, without hydronephrosis. Peritoneum and bowel: Bowel loops demonstrate normal wall thickness and caliber. No free fluid or air. Nodes and vessels: No retroperitoneal or mesenteric adenopathy by size criteria. Aorta and inferior vena cava are normal in size. Miscellaneous: Moderate size umbilical hernia is seen containing fat only. PELVIS: Genitourinary: Bladder wall thickness is normal. Miscellaneous: No inguinal hernias . Mildly prominent bilateral inguinal lymph nodes are seen measures up to 1.1 cm in short axis diameter in left inguinal region. Bulky appearing uterus is noted with heterogeneous enhancement and suggestion of multiple uterine fibroids seen. Fluid distending endometrium is noted. No no gross abnormality is seen in bilateral ovaries. Bones: No suspicious bony lesions. No vertebral body compression fractures. IMPRESSION: 1. uterus with multiple uterine fibroids. Fluid is noted within endometrium. Infectious process cannot be excluded given patient's clinical presentation. No gross abnormality is seen in bilateral adnexa. 2. Nonspecific mildly enlarged bilateral axillary and inguinal lymph nodes as described above and may represent reactive inflammatory lymphadenopathy. No peritoneal retroperitoneal lymphadenopathy. No mediastinal or hilar lymphadenopathy. 3. Linear scarring/atelectasis in left upper lobe. Bilateral lung briseno are otherwise clear. 4. No bowel obstruction or abnormal bowel wall thickening. No free fluid or free air. No abscess collection. Dictated by: Eliecer Hampton M.D. on 07/29/2022 at 17:30 Approved by: Eliecer Hampton M.D. on 07/29/2022 at 17:37
--- NOTE | 2022-07-29 18:04 | PC.NURSE ---
demise at 20 weeks, 1 week ago
[2022-07-29] MEDS: VANCOMYCIN 1,500 MG/300 ML PIGGYBACK 200 MG IV (18:14)
[2022-07-29 18:16] LABS: COVID19 -Nasal RAPID Negative (Negative)
[2022-07-29 18:27] LABS: Bacteria Urine Occasional (0-1); Culture Indicated Urine Specimen Cultured; RBC Urine 30-100/HPF (0-5/HPF); Squamous Epithelial Cell Urine 1-5 /HPF (0-5/HPF); WBC Urine 1-5/HPF (0-5/HPF)
[2022-07-29] MEDS: SODIUM CHLORIDE 0.9% 1000 ML IV (19:02)
--- NOTE | 2022-07-29 20:38 | P.HP_ITS ---
History of Present Illness History of Present Illness Date Patient Seen: 07/29/22 Time Patient Seen: 20:39 Chief complaint: possible infection, sent by monik Narrative: Mayelin Dillon is a 26-year-old female with a history of iron-deficiency anemia, daily hookah and alcohol intake prior to who presented to the ED on 07/19/2022 for cramping vaginal bleeding, admitted by Dr. Lopez wheel lacer and truer- the patient subsequently had a spontaneous vaginal delivery of a nonviable fetus of 20 weeks, blood loss approximately 400-500 cc, was treated with IV fluids and indomethacin and discharged. Patient was seen for a followed by Dr. Lopez on 07/24 and found to be stable and doing well. Presented to the ED complaining of worsening abdominal cramping over the last several days predominantly on the left side with nausea chills and dizziness, notes continued vaginal bleeding but it is decreasing since miscarriage, and feeling feverish on and off. On admit patient reports that the nausea, chills, dizziness has resolved, has continued cramping but has decreased significantly is now more diffuse. Patient denies chest pain, shortness in breath, headache, changes in vision, difficulty swallowing, speech impairment, weakness, numbness, difficulty with ambulation, recent falls, head injury, LOC, body aches, cough, recent exposure to illness, vomiting, urinary incontinence/retention, dysuria, frequency, urgency, hematuria, bowel changes, constipation, incontinence, melena, rashes, recent changes to medication, injury, or trauma. Patient denies rash, vomiting, diarrhea, body aches. At the time of admission no elevated BUN or creatinine, platelets are WNL, no transaminitis, or neurological changes-no s/s of toxic shock syndrome Admit:temp 97.4? BP 98/70, slightly tachycardic HR 105, tachypneic RR 29, O2 saturation 100% on room air. WBC 13.9, neutrophils 13,500, H&H 8.2/24.7. Last H&H on 07/19/2022 11.1/33.3. Patient has a potassium 2.6-given 15mmol/L in ED, lactate is normal, total bili is normal, albumin 3.2, procalcitonin 15.7, urinalysis noted RBC 30-100 culture is pending, COVID is negative. Pelvic ultrasound demonstrated no retained products of conception, positive for uterine fibroids, chest x-ray is negative for any acute cardiopulmonary process. C/ABD/P CT demonstrated uterus with multiple uterine fibroids.? Fluid is noted within endometrium, possibly?infectious process, without gross abnormality is seen in bilateral adnexa. There is found to be Nonspecific mildly enlarged bilateral axillary and inguinal lymph possibly reactive inflammatory lymphadenopathy.? There is no peritoneal retroperitoneal lymphad enopathy.? No mediastinal or hilar lymphadenopathy. Noted linear scarring/atelectasis in left upper lobe. Patient meets SIRS criteria, though sofa score:0 not meeting Sepsis criteria for admit. Patient was given cefepime and vancomycin in the ED. patient admitted for status post miscarriage leuko cytosis, hypokalemia, and anemia. Patient History Medical History (Updated 07/29/22 @ 22:25 by JT Wheeler-KHRIS) Iron deficiency anemia Comment: No previous surgical history Family & Social History Family History (Updated 07/29/22 @ 22:26 by JT Wheeler-KHRIS) Mother Cancer Hypertension Father Heart attack Safety & Behavioral: Feels Safe in Current Yes, lives alone, and works as a lab asst. Family lives abroad currently in [facility]. Environment Been Physically Hurt or No Threatened By a Person Tobacco & Substance use: Smoking Status Never smoker tobacco products, but prior to smoked hookah daily. alcohol intake frequency prior to 1-2 glasses daily Substance Use Type does not use Meds Home Medications and Allergies Allergies Allergy/AdvReac Type Severity Reaction Status Date / Time No Known Drug Allergies Allergy Verified 06/03/22 23:40 Review of Systems Review of Systems Narrative: All 12 point systems reviewed with the patient and are negative except otherwise documented. Exam Vital Signs (past 8 hours): - 07/29/22 16:00 07/29/22 17:00 07/29/22 18:04 Temperature 97.4 F L Pulse Rate 140 H 115 H 112 H Respiratory Rate 22 17 22 Blood Pressure 115/70 115/76 112/69 Pulse Oximetry 100 99 100 Oxygen Delivery Method Room Air Room Air 07/29/22 18:07 07/29/22 18:07 07/29/22 18:29 Temperature Pulse Rate 111 H Respiratory Rate 27 H Blood Pressure 112/68 109/70 Pulse Oximetry 99 Oxygen Delivery Method 07/29/22 18:29 07/29/22 18:30 07/29/22 18:30 Temperature Pulse Rate 109 H 110 H Respiratory Rate 26 H 18 Blood Pressure 105/66 Pulse Oximetry 100 100 Oxygen Delivery Method 07/29/22 19:00 07/29/22 19:01 07/29/22 19:01 Temperature Pulse Rate 101 H 105 H Respiratory Rate 29 H 29 H Blood Pressure 98/70 Pulse Oximetry 100 100 Oxygen Delivery Method Oxygen Delivery Method Room Air Narrative Exam Narrative: General: Patient is a well-developed, well-nourished in no distress at this time. HEENT: Normocephalic, atraumatic, extraocular muscles intact, oral pharynx is clear and mucous membranes are moist. Neck is supple and symmetric, trachea is midline, no adenopathy, no thyroid enlargement, nontender, no masses palpated. Negative for JVD Chest: Normal AP diameter and contour without kyphoscoliosis, no nasal flaring, retractions, or tachypneic labored Lungs: Auscultation of all lung briseno are clear without adventitious sounds, wheezes, rhonchi, or rales. Cardio: S1 & S2 with regular rate and rhythm without murmur, rubs, or gallops, no carotid bruit, no cardiac pulsations present. Abdomen: Soft mild diffuse tenderness, negative for organomegaly, or masses. B owel sounds are present in all 4 quadrants without guarding or rebound, no CVA tenderness. Musculoskeletal: Muscle strength and tone are equal within normal limits, no deformity, crepitus, effusions, cyanosis, clubbing or edema present. Full range of motion intact radial and pedal pulses are normal. Skin: Warm dry and intact without rashes, ulcerations or petechiae. Neuro: Alert and orientated x3, strength is +5/5 in all extremities, sensation to touch intact, no gross deficits noted of cranial nerves. Psych: Patient has a well-kept appearance, appears extremely anxious, mental status attitude thought context and judgment are appropriate for age. Objective Labs 07/29/22 17:13 07/29/22 16:30 Labs: Laboratory Results - last 24 hr 07/29/22 07/29/22 07/29/22 16:30 16:30 16:30 WBC RBC Hgb Hct MCV MCH MCHC RDW Plt Count Neut % (Auto) Lymph % (Auto) [place] % (Auto) Eos % (Auto) Baso % (Auto) Neut # (Auto) Lymph # (Auto) [place] # (Auto) Eos # (Auto) Baso # (Auto) PT 14.6 H INR 1.3 APTT 24 L Sodium 135 L Potassium 2.6 L* Chloride 104 Carbon Dioxide 22 BUN 4 L Creatinine 0.65 Estimated GFR > 60 BUN/Creatinine Ratio 6.2 Glucose 105 H Lactate 1.9 Calcium 8.3 L Total Bilirubin 1.1 AST 21 ALT 17 Alkaline Phosphatase 122 Total Protein 6.7 Albumin 3.2 L Globulin 3.5 Albumin/Globulin Ratio 0.9 L Lipase 69 Procalcitonin 15.7 H Urine RBC Urine WBC Ur Squamous Epith Cells Urine Bacteria Ur Culture Indicated? SARS-CoV-2 (PCR) 07/29/22 07/29/22 07/29/22 17:13 17:45 17:59 WBC 13.9 H RBC 2.93 L Hgb 8.2 L Hct 24.7 L MCV 84.4 MCH 28.0 MCHC 33.2 RDW 14.0 Plt Count 273 Neut % (Auto) 96.7 H Lymph % (Auto) 1.8 L [place] % (Auto) 1.4 L Eos % (Auto) 0.0 L Baso % (Auto) 0.1 Neut # (Auto) 96956 H Lymph # (Auto) 200 L [place] # (Auto) 200 Eos # (Auto) 0 Baso # (Auto) 0 PT INR APTT Sodium Potassium Chloride Carbon Dioxide BUN Creatinine Estimated GFR BUN/Creatinine Ratio Glucose Lactate Calcium Total Bilirubin AST ALT Alkaline Phosphatase Total Protein Albumin Globulin Albumin/Globulin Ratio Lipase Procalcitonin Urine RBC 30-100/hpf H Urine WBC 1-5/hpf Ur Squamous Epith Cells 1-5 /hpf Urine Bacteria Occasional (0-1) Ur Culture Indicated? Specimen cultured SARS-CoV-2 (PCR) Negative Assessment & Plan Assessment & Plan narrative: Mayelin Dillon is a 26-year-old female who presented to the ED on 07/19/2022 for cramping vaginal bleeding, the patient was admitted by Dr. Lopez wheel lacer and truer-the patient subsequently had a spontaneous vaginal delivery of a nonviable fetus 20 weeks. Patient returned to the ED today after developing increasing intensity and worsening of abdominal cramping with nausea dizziness, and chills. Patient admitted for status post miscarriage leukocytosis, hypokalemia, and anemia. Patient will require inpatient care for monitoring for sepsis/septic shock, bleeding, IV hydration, potassium & magnesium supplementation, trending H and H, and IV antibiotics. Consultation by Ob tomorrow. 1. Leukocytosis, neutrophilic, status post 20 week miscarriage, acute, present on admission -patient meets SIRS criteria, but does not meet criteria for sepsis admit SOFA:0 -monitor for toxic shock syndrome, sepsis, septic shock -with noted tachycardia HR 105, tachypnea RR 29, WBC 13.9, neutrophils 13,500, procalcitonin 15.7, lactate, and bili WNL -patient was given sepsis fluid bolus in the ED, cefepime and vancomycin -we will continue NS@150cc/Hr -suspect likely endometritis-per up-to-date 07/29/2022 recommended clindamycin plus gentamicin -consulted with Dr. Garrison PRICE on-call regarding patient's case as no ED note/report unavailable-placed inpatient consult for Dr. John PRICE -also personally reviewed all Dr. Lopez's notes and pathology results, and all imaging reports. -urine and blood cultures pending-will change antibiotic treatment based on results, trend inflammatory markers. -urinalysis noted RBC 30-100 culture is pending, COVID is negative. -Pelvic ultrasound demonstrated no retained products of conception, positive for uterine fibroids, -chest x-ray is negative for any acute cardiopulmonary process. -C/ABD/P CT demonstrated uterus with multiple uterine fibroids.? Fluid is noted within endometrium, possibly?infectious process, without gross abnormality is seen in bilateral adnexa. There is found to be Nonspecific mildly enlarged bilateral axillary and inguinal lymph possibly reactive inflammatory lymphadenopathy.? There is no peritoneal retroperitoneal lymphaden opathy.? No mediastinal or hilar lymphadenopathy. Noted linear scarring/atelectasis in left upper lobe. 2. Hypokalemia, acute, present on admission -presenting potassium 2.6 patient given 15 mmol/L in ED -ordered MAG demonstrated hypomagnesia 1.2-ordered 2 g Mag rider -trend potassium replace as needed 3. Anemia, acute, with a history of iron-deficiency anemia, present on admission -likely secondary to status post miscarriage -Admit:H&H 8.2/24.7. Last H&H on 07/19/2022 11.33.3 -patient's H&H had been WNL on prior laboratory findings-she notes that she does not take supplementation as she is unable to tolerate oral iron. -monitor for bleeding and trend H&H, ordered iron with saturation and ferritin 4. Obesity, mild, acute on chronic, present on admission -dietary consult ordered regarding nutritional education and information for dietary, lifestyle, exercise, and weight changes. -the patient is at much higher risk for medical and surgical complications due to obesity as it relates to chronic illnesses:, and acute illness. The patient's obesity increases the difficulty and complexity of medical and/or surgical interventions, management and increases the chances of poor outcome such as morbidity and mortality as well as impaired wound healing. Code status:Full Surrogate decision maker: Mother Homa Dillon BENITO PCR: Negative DVT/VTE prophylaxis: Holding Lovenox at this time due to risk bleed and low H&H, SCDs Disposition: Patient admitted to acute care expected length of stay greater than 2 midnights. I have utilized all available immediate resources to obtain, update, or review the patient's current medications. I confirmed that the patient's advanced care plan is present, Code status is documented and/or surrogate decision maker is listed in the patient's medical record. I have personally reviewed patient's chart notes from PCP, specialists, diagno stic imaging, and laboratory results.
[2022-07-29 20:50] LABS: Magnesium 1.2 mg/dL (1.6-2.3)
[2022-07-29 20:53] LABS: C-Reactive Protein Quant 8.5 mg/dL (<1.0)
--- NOTE | 2022-07-29 21:39 | ED.SEPSIS ---
HPI - Sepsis General Chief Complaint: Weakness Mode of arrival: Ambulatory Source: patient Limitations: no limitations Evaluation Sepsis Screen: Possible Sepsis Risk Sepsis Infection Criteria Present: Suspected New Infection Narrative: 26 year old female presenting with concern for infection, patient noted to have intermittent fevers over the last 1-2 weeks since she had a miscarriage at approximately 20 weeks' gestation. Patient has noted bloody and clear vaginal discharge, denies tyson purulent type discharge or foul smelling discharge. Patient reports bilateral lower quadrant [id number] abdominal pain. Patient History Social History Smoking Status: Never smoker Smoking Status: Never smoker alcohol intake frequency: holidays/special occasions only Substance Use Type: does not use Exam Narrative Exam Narrative: Vitals reviewed. Nursing note reviewed Constitutional: interactive HENT: Moist mucous membranes EYES: No scleral icterus NECK: no masses CV: Well perfused peripherally, no cyanosis present PULM: Unlabored respirations, symmetric chest rise ABD: Non-distended, mild tenderness over the bilateral lower quadrants of the abdomen MS: No gross deformities, no asymmetric edema noted SKIN: Warm and dry. PSYCH: Appropriate affect NEURO: Follows simple commands, moves extremities, interactive with exam Initial Vital Signs Initial Vital Signs: Vital Signs Temperature 97.4 F L 07/29/22 16:00 Pulse Rate 140 H 07/29/22 16:00 Respiratory Rate 22 07/29/22 16:00 Blood Pressure 115/70 07/29/22 16:00 Pulse Oximetry 100 07/29/22 16:00 Oxygen Delivery Method Room Air 07/29/22 16:00 Course Orders Ordered: ED Orders 07/29/22 16:06 XR chest 1V Stat 07/29/22 16:13 US pelvic complete Stat 07/29/22 16:30 Comprehensive Metabolic Panel Stat Lactate (Lactic Acid) Stat Lipase Stat PTT Partial Thromboplastin Nir Stat Procalcitonin Stat Prothrombin Time INR Stat 07/29/22 17:13 Blood Culture Stat Complete Blood Count AUTO DIFF Stat 07/29/22 17:45 Urine Culture Stat Urine Microscopic Stat 07/29/22 17:59 COVID19 -Nasal RAPID Stat 07/29/22 18:00 CT chest abd pel w con Stat Acetaminophen (Acetaminophen 325 Mg Tablet) 650 mg PO Q6H PRN PRN Reason: Fever/Mild Pain (1-3) Al Hydrox/Mg Hydrox/Simethicone (Mag Hydrox/Alum/Simeth 30 Ml Udc) 30 ml PO Q6HR PRN PRN Reason: Dyspepsia Calcium Carbonate (Calcium Carbonate 500 Mg Tab) 1,000 mg PO Q4HR PRN PRN Reason: Dyspepsia Gentamicin Sulfate (Gentamicin Per Pharmacy) 1 request MISC NOW ONE Stop: 07/29/22 20:29 Sodium Chloride (Normal Saline 0.9%) 1,000 mls @ 150 mls/hr IV CONT YAJAIRA Clindamycin Phosphate (Cleocin) 900 mg in 50 mls @ 50 mls/hr IV Q8H YAJAIRA Magnesium Sulfate (Magnesium Sulfate) 2 gm in 50 mls @ 25 mls/hr IV NOW ONE Stop: 07/29/22 23:17 Naloxone HCl (Naloxone 0.4 Mg/Ml Vial) 0.2 mg IV Q2MIN PRN PRN Reason: Opiate Reversal Ondansetron HCl (Ondansetron 4 Mg/2 Ml Inj) 4 mg IV Q4HR PRN PRN Reason: Nausea And Vomiting Discontinued Medications Sodium Chloride (Normal Saline 0.9%) 1,000 mls @ 1,000 mls/hr IV BOLUS ONE Stop: 07/29/22 17:05 Last Infusion: 07/29/22 19:00 Dose: 0 mls/hr Documented By: Admin: 07/29/22 17:04 Dose: 1,000 mls/hr Documented By: DELROY Cefepime HCl 2 gm/ Sodium (Chloride) 100 mls @ 200 mls/hr IV NOW ONE Stop: 07/29/22 16:30 Last Infusion: 07/29/22 18:14 Dose: 0 mls/hr Documented By: Admin: 07/29/22 17:11 Dose: 200 mls/hr Documented By: DELROY Sodium Chloride (Normal Saline 0.9%) 1,532 mls @ 1,000 mls/hr IV BOLUS ONE Stop: 07/29/22 18:03 Last Infusion: 07/29/22 20:48 Dose: 0 mls/hr Documented By: Admin: 07/29/22 19:02 Dose: 1,000 mls/hr Documented By: WU Vancomycin HCl/Dextrose (Vancomycin) 1,500 mg in 300 mls @ 200 mls/hr IV NOW ONE Stop: 07/29/22 18:21 Last Infusion: 07/29/22 20:06 Dose: 0 mls/hr Documented By: Admin: 07/29/22 18:14 Dose: 200 mls/hr Documented By: WU Potassium Phosphate 15 mmol/ (Sodium Chloride) 255 mls @ 63.75 mls/hr IV NOW ONE Stop: 07/29/22 17:00 Last Admin: 07/29/22 17:44 Dose: 63.75 mls/hr Documented By: DELROY Gentamicin Sulfate 420 mg/ (Sodium Chloride) 110.5 mls @ 100 mls/hr IV Q24H [facility] Ondansetron HCl (Ondansetron 4 Mg Odt) 4 mg SL NOW PRN PRN Reason: Nausea And Vomiting Ondansetron HCl (Ondansetron 4 Mg/2 Ml Inj) 4 mg IV NOW PRN PRN Reason: Nausea And Vomiting Vancomycin HCl (Vancomycin Per Pharmacy) 1 request MISC NOW ONE Stop: 07/29/22 16:30 Last Admin: 07/29/22 18:14 Dose: Not Given Documented By: WU Vital Signs Vital signs: Vital Signs - 8 hr 07/29/22 16:00 07/29/22 17:00 07/29/22 18:04 Temperature 97.4 F L Pulse Rate 140 H 115 H 112 H Respiratory Rate 22 17 22 Blood Pressure 115/70 115/76 112/69 Pulse Oximetry 100 99 100 Oxygen Delivery Method Room Air Room Air 07/29/22 18:07 07/29/22 18:07 07/29/22 18:29 Temperature Pulse Rate 111 H Respiratory Rate 27 H Blood Pressure 112/68 109/70 Pulse Oximetry 99 Oxygen Delivery Method 07/29/22 18:29 07/29/22 18:30 07/29/22 18:30 Temperature Pulse Rate 109 H 110 H Respiratory Rate 26 H 18 Blood Pressure 105/66 Pulse Oximetry 100 100 Oxygen Delivery Method 07/29/22 19:00 07/29/22 19:01 07/29/22 19:01 Temperature Pulse Rate 101 H 105 H Respiratory Rate 29 H 29 H Blood Pressure 98/70 Pulse Oximetry 100 100 Oxygen Delivery Method Sepsis Evaluation (ED) Triage Screening Sepsis Screen: Possible Sepsis Risk Level 1 - Infection Sepsis Infection Criteria Present: Suspected New Infection Response It is my opinion that his patient have a likely infectious etiology for meeting sepsis criteria: Does Fluid calculation based on 30 mL/kg within 1hr of criteria: ABW used Antibiotics initiated within 1 hr of Sepis dx: Yes Tissue Perfusion Reassessed within 6 hrs of infusion start time: No (n/a) MDM - Sepsis Lab Data 07/29/22 17:13 07/29/22 16:30 Labs: Lab Results 07/29/22 07/29/22 07/29/22 Range/Units 16:30 16:30 16:30 WBC (4.5-11.0) X10^3/uL RBC (4.0-5.2) X10^6/uL Hgb (12.0-16.0) g/dL Hct (36-46) % MCV (80-100) fL MCH (26-34) PG MCHC (30-36) % RDW (11.6-14.8) % Plt Count (150-400) X10^3/uL Neut % (Auto) (50-75) % Lymph % (Auto) (25-40) % [place] % (Auto) (3-14) % Eos % (Auto) (2-4) % Baso % (Auto) (0-2) % Neut # (Auto) (1191-9745) /uL Lymph # (Auto) (3596-6531) /uL [place] # (Auto) (0-900) /uL Eos # (Auto) (0-450) /uL Baso # (Auto) (0-100) /uL PT 14.6 H (10.1-12.7) SECONDS INR 1.3 (0.9-1.3) APTT 24 L (26-36) SECONDS Sodium 135 L (137-145) mmol/L Potassium 2.6 L* (3.4-5.1) mmol/L Chloride 104 (98-107) mmol/L Carbon Dioxide 22 (22-32) mmol/L BUN 4 L (7-17) mg/dL Creatinine 0.65 (0.52-1.04) mg/dL Estimated GFR > 60 (>60) mL/min BUN/Creatinine Ratio 6.2 (6-22) Glucose 105 H (70-100) mg/dL Lactate 1.9 (0.7-2.1) mmol/L Calcium 8.3 L (8.4-10.2) mg/dL Magnesium (1.6-2.3) mg/dL Total Bilirubin 1.1 (0.2-1.3) mg/dL AST 21 (14-36) IU/L ALT 17 (<35) IU/L Alkaline Phosphatase 122 (38-126) U/L C-Reactive Protein (<1.0) mg/dL Total Protein 6.7 (6.3-8.2) g/dL Albumin 3.2 L (3.5-5.0) g/dL Globulin 3.5 (1.7-4.1) g/dL Albumin/Globulin Ratio 0.9 L (1.0-2.8) Lipase 69 (23-300) U/L Procalcitonin 15.7 H (<0.5) ng/mL Urine RBC (0-5/HPF) Urine WBC (0-5/HPF) Ur Squamous Epith Cells (0-5/HPF) Urine Bacteria (None) Ur Culture Indicated? SARS-CoV-2 (PCR) (Negative) 07/29/22 07/29/22 07/29/22 Range/Units 16:30 16:30 17:13 WBC 13.9 H (4.5-11.0) X10^3/uL RBC 2.93 L (4.0-5.2) X10^6/uL Hgb 8.2 L (12.0-16.0) g/dL Hct 24.7 L (36-46) % MCV 84.4 (80-100) fL MCH 28.0 (26-34) PG MCHC 33.2 (30-36) % RDW 14.0 (11.6-14.8) % Plt Count 273 (150-400) X10^3/uL Neut % (Auto) 96.7 H (50-75) % Lymph % (Auto) 1.8 L (25-40) % [place] % (Auto) 1.4 L (3-14) % Eos % (Auto) 0.0 L (2-4) % Baso % (Auto) 0.1 (0-2) % Neut # (Auto) 84945 H (6549-5867) /uL Lymph # (Auto) 200 L (7522-9295) /uL [place] # (Auto) 200 (0-900) /uL Eos # (Auto) 0 (0-450) /uL Baso # (Auto) 0 (0-100) /uL PT (10.1-12.7) SECONDS INR (0.9-1.3) APTT (26-36) SECONDS Sodium (137-145) mmol/L Potassium (3.4-5.1) mmol/L Chloride (98-107) mmol/L Carbon Dioxide (22-32) mmol/L BUN (7-17) mg/dL Creatinine (0.52-1.04) mg/dL Estimated GFR (>60) mL/min BUN/Creatinine Ratio (6-22) Glucose (70-100) mg/dL Lactate (0.7-2.1) mmol/L Calcium (8.4-10.2) mg/dL Magnesium 1.2 L (1.6-2.3) mg/dL Total Bilirubin (0.2-1.3) mg/dL AST (14-36) IU/L ALT (<35) IU/L Alkaline Phosphatase (38-126) U/L C-Reactive Protein 8.5 H (<1.0) mg/dL Total Protein (6.3-8.2) g/dL Albumin (3.5-5.0) g/dL Globulin (1.7-4.1) g/dL Albumin/Globulin Ratio (1.0-2.8) Lipase (23-300) U/L Procalcitonin (<0.5) ng/mL Urine RBC (0-5/HPF) Urine WBC (0-5/HPF) Ur Squamous Epith Cells (0-5/HPF) Urine Bacteria (None) Ur Culture Indicated? SARS-CoV-2 (PCR) (Negative) 07/29/22 07/29/22 Range/Units 17:45 17:59 WBC (4.5-11.0) X10^3/uL RBC (4.0-5.2) X10^6/uL Hgb (12.0-16.0) g/dL Hct (36-46) % MCV (80-100) fL MCH (26-34) PG MCHC (30-36) % RDW (11.6-14.8) % Plt Count (150-400) X10^3/uL Neut % (Auto) (50-75) % Lymph % (Auto) (25-40) % [place] % (Auto) (3-14) % Eos % (Auto) (2-4) % Baso % (Auto) (0-2) % Neut # (Auto) (4868-1916) /uL Lymph # (Auto) (0079-7884) /uL [place] # (Auto) (0-900) /uL Eos # (Auto) (0-450) /uL Baso # (Auto) (0-100) /uL PT (10.1-12.7) SECONDS INR (0.9-1.3) APTT (26-36) SECONDS Sodium (137-145) mmol/L Potassium (3.4-5.1) mmol/L Chloride (98-107) mmol/L Carbon Dioxide (22-32) mmol/L BUN (7-17) mg/dL Creatinine (0.52-1.04) mg/dL Estimated GFR (>60) mL/min BUN/Creatinine Ratio (6-22) Glucose (70-100) mg/dL Lactate (0.7-2.1) mmol/L Calcium (8.4-10.2) mg/dL Magnesium (1.6-2.3) mg/dL Total Bilirubin (0.2-1.3) mg/dL AST (14-36) IU/L ALT (<35) IU/L Alkaline Phosphatase (38-126) U/L C-Reactive Protein (<1.0) mg/dL Total Protein (6.3-8.2) g/dL Albumin (3.5-5.0) g/dL Globulin (1.7-4.1) g/dL Albumin/Globulin Ratio (1.0-2.8) Lipase (23-300) U/L Procalcitonin (<0.5) ng/mL Urine RBC 30-100/hpf H (0-5/HPF) Urine WBC 1-5/hpf (0-5/HPF) Ur Squamous Epith Cells 1-5 /hpf (0-5/HPF) Urine Bacteria Occasional (0-1) (None) Ur Culture Indicated? Specimen cultured SARS-CoV-2 (PCR) Negative (Negative) Urine Dip Bedside Urine Glucose Negative Bedside Urine Bilirubin - Negative Bedside Urine Ketone +/- 5 Urine Specific [place] 1.010 Bedside Urine Occult Blood +++ Bedside Urine pH 6.0 Bedside Urine Protein - Negative Bedside Urine Urobilinogen - Negative Bedside Urine Nitrite - Negative Bedside Urine Leukocytes +/- 15 Esterase MDM Narrative Medical decision making narrative: 26-year-old female presenting with concern for fever, tachycardia, and sepsis in the setting of recent miscarriage. On presentation, vital signs notable for tachycardia. Physical exam notable for alert and interactive 26-year-old female grossly reassuring cardiopulmonary exam, mild lower abdominal tenderness. Initial concern for sepsis with source given recent miscarriage, retained products of conception, pelvic abscess, appendicitis, alternative acute intra-abdominal, urinary tract infection, pyelonephritis, obstructing stone. Given patient does meet sepsis criteria on initial presentation, patient was administered broad-spectrum antibiotics and IV fluids. Pelvic ultrasound was obtained and without clear evidence of retained products. Discussed findings with astrochemist, recommending medical admission with OB to consult. CT imaging without clear evidence of acute intra-abdominal pathology. Discussed findings with patient and family member at bedside. Patient is subsequently admitted to Hospital Medicine team for ongoing management. Discharge Plan Departure Patient Disposition: Admitted As Inpatient Clinical Impression: Sepsis Admit Date/Time: 07/29/22 19:18 Admit Provider: Edmund Sanchez
[2022-07-29] MEDS: MAGNESIUM SULFATE 2 GM/50 ML PIGGYBACK IV (22:19)
[2022-07-29] MEDS: CLINDAMYCIN 900 MG/50 ML PIGGYBACK 50 MG IV (22:19)
[2022-07-30] VITALS (9 sets, daily range): BP systolic 95–108; BP diastolic 60–74; PULSE 84–94; RESP 17–21; TEMP 36.3–37.3; O2SAT 97–100
[2022-07-30] MEDS: GENTAMICIN 420 MG in SODIUM CHLORIDE 0.9% 100 ML 100 MG IV (00:53)
[2022-07-30] MEDS: SODIUM CHLORIDE 0.9% 1,000 ML 150 ML IV (00:54)
[2022-07-30 01:43] LABS: MRSA (Nasal) PCR Not Detected (Not Detect)
--- NOTE | 2022-07-30 02:27 | PC.NURSE ---
Addendum entered by Sana Coats R.N. 07/30/22 07:37: I agree with Christie RNs assessment, documentation, and interventions. Original Note: Pt arrived on unit in room 229 @ 2009 in wheelchair. Pt A&Ox4, answered all admit questions and ambulates independently while receiving IV fluids in the LAC. Pt has another IV in the RAC. VS stable, on RA, stats @ 100%. Pt c/o /10 lower abd pain, but refused any pain meds at this time. Abxs were administered. Pt voiding and denies N/V. Pt's friend, Kev is staying the night. Hospital staff and security were alerted to pt's ex wanting to contact pt and of his arrival at the manager front office. Pt is refusing ex to see her d/t hx of alcohol and abuse.
[2022-07-30 04:36] LABS: Add Manual Diff / Slide Review NO; Basophils Absolute Auto 0 /uL (0-100); Basophils Percent Auto 0.2 % (0-2); Eosinophils Absolute Auto 0 /uL (0-450); Eosinophils Percent Auto 0.1 % (2-4); Hematocrit 21.7 % (36-46); Hemoglobin 7.2 g/dL (12.0-16.0); Lymphocytes Absolute Auto 700 /uL (1100-4500); Lymphocytes Percent Auto 4.8 % (25-40); Mean Corpuscular HGB Conc 33.1 % (30-36); Mean Corpuscular Hemoglobin 27.8 PG (26-34); Mean Corpuscular Volume 84.1 fL (80-100); Monocytes Absolute Auto 400 /uL (0-900); Neutrophils Absolute Auto 13200 /uL (1500-7000); Neutrophils Percent Auto 91.9 % (50-75); Platelet Count 240 X10^3/uL (150-400); Red Blood Cell Count 2.58 X10^6/uL (4.0-5.2); White Blood Cell Count 14.4 X10^3/uL (4.5-11.0)
[2022-07-30 04:39] LABS: BUN Creatinine Ratio 6.9 (6-22); Blood Urea Nitrogen 4 mg/dL (7-17); Calcium 7.1 mg/dL (8.4-10.2); Carbon Dioxide 21 mmol/L (22-32); Chloride 110 mmol/L (98-107); Estimated Glomerular Filt Rate > 60 mL/min (>60); Glucose 84 mg/dL (70-100); HEMOLYSIS < 15 (0-50); Potassium 3.3 mmol/L (3.4-5.1); Sodium 138 mmol/L (137-145)
[2022-07-30 04:55] LABS: HEMOLYSIS < 15 (0-50)
[2022-07-30 04:57] LABS: Procalcitonin 19.3 ng/mL (<0.5)
[2022-07-30 05:04] LABS: Erythrocyte Sedimentation Rate 57 MM/HR (0-20)
[2022-07-30 05:06] LABS: Lactate (Lactic Acid) 0.8 mmol/L (0.7-2.1)
[2022-07-30] MEDS: CLINDAMYCIN 900 MG/50 ML PIGGYBACK 50 MG IV ×3 (05:14→22:41)
[2022-07-30 05:15] LABS: Ferritin 96 ng/mL (6-137)
[2022-07-30 05:21] LABS: Total Iron Binding Capacity 238 ug/dL (265-497); Transferrin 170 mg/dL (206-381)
[2022-07-30 05:31] LABS: Iron < 10 ug/dL (37-170); Percent Iron Saturation 4 % (15-50)
[2022-07-30 06:03] LABS: Magnesium 1.8 mg/dL (1.6-2.3)
[2022-07-30] MEDS: POTASSIUM CHLORIDE IN WATER 10 MEQ/100 ML PIGGYBACK 100 MEQ IV ×4 (07:03→12:07)
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
[2022-07-30] MEDS: GENTAMICIN TROUGH 1 REQUEST MISC (11:19)
[2022-07-30 11:50] LABS: Gentamicin Random 2.2 ug/mL (1.0-8.0)
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
[2022-07-30] MEDS: CALCIUM GLUCONATE 4.65 MEQ in SODIUM CHLORIDE 0.9% 50 ML 180 MEQ IV (12:30)
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
[2022-07-30 14:27] LABS: Add Manual Diff / Slide Review NO; Basophils Absolute Auto 0 /uL (0-100); Basophils Percent Auto 0.2 % (0-2); Eosinophils Absolute Auto 0 /uL (0-450); Eosinophils Percent Auto 0.3 % (2-4); Hematocrit 21.9 % (36-46); Hemoglobin 7.2 g/dL (12.0-16.0); Lymphocytes Absolute Auto 700 /uL (1100-4500); Lymphocytes Percent Auto 5.6 % (25-40); Mean Corpuscular Hemoglobin 28.1 PG (26-34); Mean Corpuscular Volume 85.3 fL (80-100); Monocytes Absolute Auto 500 /uL (0-900); Neutrophils Absolute Auto 12000 /uL (1500-7000); Neutrophils Percent Auto 89.9 % (50-75); Platelet Count 228 X10^3/uL (150-400); Red Blood Cell Count 2.57 X10^6/uL (4.0-5.2); Red Cell Distribution Width 14.3 % (11.6-14.8); White Blood Cell Count 13.4 X10^3/uL (4.5-11.0)
[2022-07-30 16:11] LABS: Hematocrit 23.1 % (36-46); Hemoglobin 7.4 g/dL (12.0-16.0)
[2022-07-30 16:23] LABS: Carbon Dioxide 22 mmol/L (22-32); Chloride 111 mmol/L (98-107); HEMOLYSIS < 15 (0-50); Potassium 3.4 mmol/L (3.4-5.1); Sodium 138 mmol/L (137-145)
[2022-07-30] MEDS: ACETAMINOPHEN 325 MG TABLET 650 MG PO (16:46)
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
[2022-07-30] MEDS: IRON SUCROSE 100 MG in SODIUM CHLORIDE 0.9% 100 ML 420 MG IV (17:24)
[2022-07-30] MEDS: POTASSIUM CHLORIDE 20 MEQ TAB 40 MEQ PO (17:32)
[2022-07-31] VITALS: BP 101/66; PULSE 87; RESP 19; TEMP 36.8; O2SAT 100
[2022-07-31] MEDS: GENTAMICIN 420 MG in SODIUM CHLORIDE 0.9% 100 ML 100 MG IV (00:01)
[2022-07-31 04:00] VITALS: BP 98/69; PULSE 75; RESP 18; TEMP 36.8; O2SAT 99
[2022-07-31 05:39] LABS: BUN Creatinine Ratio 4.4 (6-22); Blood Urea Nitrogen 3 mg/dL (7-17); Calcium 7.6 mg/dL (8.4-10.2); Carbon Dioxide 24 mmol/L (22-32); Chloride 109 mmol/L (98-107); Estimated Glomerular Filt Rate > 60 mL/min (>60); Glucose 81 mg/dL (70-100); HEMOLYSIS < 15 (0-50); Magnesium 1.4 mg/dL (1.6-2.3); Potassium 3.5 mmol/L (3.4-5.1); Sodium 138 mmol/L (137-145)
[2022-07-31 05:55] LABS: Add Manual Diff / Slide Review NO; Basophils Absolute Auto 0 /uL (0-100); Basophils Percent Auto 0.2 % (0-2); Eosinophils Absolute Auto 100 /uL (0-450); Eosinophils Percent Auto 0.5 % (2-4); Hematocrit 22.6 % (36-46); Hemoglobin 7.4 g/dL (12.0-16.0); Lymphocytes Absolute Auto 1100 /uL (1100-4500); Lymphocytes Percent Auto 9.4 % (25-40); Mean Corpuscular HGB Conc 32.7 % (30-36); Mean Corpuscular Hemoglobin 27.6 PG (26-34); Mean Corpuscular Volume 84.4 fL (80-100); Monocytes Absolute Auto 600 /uL (0-900); Monocytes Percent Auto 5.1 % (3-14); Neutrophils Absolute Auto 9900 /uL (1500-7000); Neutrophils Percent Auto 84.8 % (50-75); Platelet Count 273 X10^3/uL (150-400); Red Blood Cell Count 2.68 X10^6/uL (4.0-5.2); Red Cell Distribution Width 14.1 % (11.6-14.8); White Blood Cell Count 11.7 X10^3/uL (4.5-11.0)
[2022-07-31] MEDS: CLINDAMYCIN 900 MG/50 ML PIGGYBACK 50 MG IV ×2 (06:31→14:03)
[2022-07-31 08:00] VITALS: BP 110/76; PULSE 80; RESP 16; TEMP 36.6; O2SAT 100
[2022-07-31] MEDS: SODIUM CHLORIDE 0.9% FLUSH 10 ML IV (09:52)
[2022-07-31] MEDS: MAGNESIUM CHLORIDE 64 MG TABLET 128 MG PO (11:08)
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
[2022-07-31] MEDS: IRON SUCROSE 200 MG in SODIUM CHLORIDE 0.9% 100 ML 220 MG IV (13:17)
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
--- NOTE | 2022-07-31 15:56 | PC.NURSE ---
Addendum entered by Urvashi Alvarez R.N. 07/31/22 16:00: pt also refused IV Magnesium, provider aware. Original Note: I gave all her paper work. patient aware she needs to package pick up her prescription at [facility]. she refused wheelchair, pt accompanied by friend.
== END 2022-07-31 15:53 | disposition home or self-care (01) | DRG 776 ==
LOC: ED 16:29 → AC 19:19 → ICU 20:08
PROVIDERS: Nurse Practitioner Family; Specialist; Admitting Provider Student in an Organized Health Care Education/Training Program; Emergency Provider Emergency Medicine; Referring Provider Emergency Medicine; Visit Provider Student in an Organized Health Care Education/Training Program
DX: O86.12 Endometritis following delivery (principal); O90.89 Other complications of the puerperium, not elsewhere classified; E87.6 Hypokalemia; D64.9 Anemia, unspecified; E66.9 Obesity, unspecified; D50.9 Iron deficiency anemia, unspecified; E83.42 Hypomagnesemia; D72.829 Elevated white blood cell count, unspecified; Z20.822 Contact with and (suspected) exposure to COVID-19
CPT/HCPCS: 36415; 71045; 71260; 74177; 76830; 76856; 80048; 80051; 80053; 80170; 81003; 81015; 82728; 83540; 83550; 83605; 83690; 83735; 84145; 85014; 85018; 85025; 85610; 85651; 85730; 86140; 86850; 86900; 86901; 87040; 87086; 87635; 87797; 96365; 96366; 96367; 96368; 99231; 99233; 99285; C9803; J0610; J0692; J1756; J3475